=== PATIENT | female | born 1995 | race Hispanic/Latino ===

== ENCOUNTER 2018-01-14 06:54 | Day surgery (SDC) | payer BC ==
[2018-01-13 09:56] VITALS: BMI 22.4
[2018-01-14] MEDS ORDERED: Lidocaine 2% MPF (5 ml) Inj ONE (07:51)
[2018-01-14] MEDS ORDERED: Bupivacaine 0.25% 20 ML INJ IJ ONE (07:51)
[2018-01-14] MEDS ORDERED: ceFAZolin IV 1 gm in Dextrose 1 GM/50 ML BAG IVPB ONE (07:51)
[2018-01-14] MEDS ORDERED: Propofol 10 mg/ml Inj (20 ML) ONE (08:05)
[2018-01-14] MEDS ORDERED: Midazolam 2 MG/2 ML VIAL ONE (08:06)
[2018-01-14] MEDS ORDERED: Bacitracin 500 Units/gm Oint Foilpak UD ONE (08:32)
[2018-01-14] MEDS ORDERED: Dexamethasone 4 mg/1 ml IVP PRN (08:48)
[2018-01-14] MEDS ORDERED: HYDROmorphone 0.5 mg/0.5 ml ISec IVP PRN (08:48)
--- NOTE | 2018-01-14 08:48 | PCM.SURG1 ---
Surgeon's Initial Post Op Note - Surgeon's Notes Surgeon: Dr. Dontrell Saleem, DPM Speech And Language Assistant: Dr. Criss Vargas, PGY1, Kandice Gilmore PGY1 Type of Anesthesia: General LMA Anesthesia Administered By: Anu Gomez MD Pre-Operative Diagnosis: Right ingrown hallux nail Operative Findings: see dictation Post-Operative Diagnosis: same Operation Performed: Right hallux matrixectomy Specimen/Specimens Removed: none Estimated Blood Loss: EBL {In ML}: 0 Blood Products Given: N/A Drains Used: No Drains Post-Op Condition: Good Date of Surgery/Procedure: 01/14/18 Time of Surgery/Procedure: 08:48
[2018-01-14] MEDS ORDERED: Oxycodone/Acetaminophen 5/325 mg Tab PO PRN (08:51)
[2018-01-14 12:01] VITALS: TEMP 97.8; O2SAT 98
[2018-01-14 12:06] VITALS: BP 112/72; PULSE 91; RESP 18
--- NOTE | 2018-01-16 08:08 | OP ---
PROCEDURE DATE: 01/14/2018 PATIENT'S AGE: 22. PATIENT'S SEX: Female. SURGEON: Dontrell Saleem DPM ASSISTANTS: Criss Hurtado, PGY-1 and Kandice Gilmore PGY-1 ANESTHESIA ADMINISTERED BY: Anu Chris MD ANESTHESIA: General anesthesia with general LMA. PREOPERATIVE DIAGNOSIS: Right ingrown hallux nail. POSTOPERATIVE DIAGNOSIS: Right ingrown hallux nail. PROCEDURE: Right hallux matrixectomy. INDICATIONS: The patient is a 22-year-old female with the above-mentioned diagnosis. The patient has exhausted all conservative care. The patient signed a consent after careful explanation of all the risks, benefits and complications to the above proposed surgical procedure. No guarantees have been given or implied. All the patient's questions were answered to her satisfaction. N.p.o. status was confirmed prior to taking the patient to the operating room. PREPARATION: The patient was brought to the operating room and placed on the operating room table in a supine position. After obtaining general anesthesia, approximately 10 mL of 0.5% Marcaine plain was injected into the surgical site. The site was then prepped and draped in the usual sterile manner. Attention was directed to the right hallux medial border and with the use of a freer elevator, the lateral border was undermined. With an Macedonian Anvil, the lateral border was then cut and removed and with the aid of a hemostat. Next, the curette was used to remove any other remaining nail matrix and residual nail. Next, the each lasting 30 seconds and then thoroughly irrigated with the alcohol solution followed by saline flush. The Lou drain was then removed and capillary refill return was immediate to the right hallux. The surgical site was dressed with Xeroform, sterile 4 x 4, and gauze. POSTOPERATIVE CONDITION: The patient tolerated the anesthesia and procedure and proceeded to the PACU with all vital signs stable and neurovascular status intact to the right foot. RECOMMENDATIONS: The patient will fully weight bear as tolerated. The patient to follow up with Dr. Saleem at his office as scheduled. Criss Hurtado, PGY Dontrell BENSON Saleem [facility] # [id number]
== END 2018-01-14 10:42 | disposition home or self-care (01) ==
LOC: C.SDS 06:54
PROVIDERS: ATTEND Podiatrist
DX: L60.0 Ingrowing nail (principal)
CPT/HCPCS: 11750; J0690; J2001; J2250; J2405; J2704; J3010